=== PATIENT | male | born 1985 | race Caucasian/White ===

== ENCOUNTER 2016-12-24 11:07 | Emergency (ER) | payer SELFPAY ==
[~2016-12-24] VITALS: Ht 175.3 cm; Wt 71.4 kg
[2016-12-24 11:13] VITALS: BP 124/74; PULSE 83; TEMP 36.5; O2SAT 93; Ht 175.3 cm; Wt 71.4 kg
[2016-12-24] MEDS ORDERED: ELMCR EXT (12:02)
[2016-12-24] MEDS ORDERED: PRED50TA PO (12:02)
--- NOTE | 2016-12-25 13:04 | EMERGENCY ROOM VISIT NOTE ---
History First contact with patient: 11:46 Chief Complaint: SKIN PROBLEM Stated Complaint: ALLERGY History of Present Illness The patient is a 31 year old male who presents to the Emergency Room with complaints of pain and itching to his hands off and on for the past 6 months. The patient states the symptoms have worsened over the past 2-3 days. He does not have known exposure to disease or environmental contacts. He has not had fever or chills. He will have intermittent itching of his left leg but no other areas. No changes in soaps or detergents. Review of Systems More than 10 systems were reviewed and otherwise negative with the exception of history of present illness. Past Medical/Surgical History No chronic medical disease Family History No pertinent family history Social History Smoking Status: Never Smoker Current/Historical Medications Scheduled Permethrin 5% (Elimite 5%), 0 EXT UD Prednisone (Prednisone), 50 MG PO DAILY Allergies Coded Allergies: No Known Allergies (Unverified , 12/24/16) Physical Exam Vital Signs Date Time Temp Pulse Resp B/P Pulse Ox O2 Delivery O2 Flow Rate FiO2 12/24/16 11:13 36.5 83 16 124/74 93 Room Air Pain Rating (0-10): 0 Physical Exam VITALS: Vitals are noted on the nurse's note and reviewed by myself. Vital signs stable. GENERAL: Well-developed, well-nourished, male, who is in no acute distress and resting comfortably. Patient is cooperative with the examination. HEAD: Normocephalic atraumatic. HEART: Regular rate and rhythm without murmurs gallops or rubs. LUNGS: Clear to auscultation bilaterally without wheezes, rales or rhonchi. No retractions or accessory muscle use. SKIN: The skin was with several reddened areas primarily in the intertrigo regions of the hands and fingers. There are several small blisters along the medial left third and left fourth digits. No obvious burrows appreciated. No evidence of cellulitis or abscess. Medical Decision & Procedures ED Course Physical exam and history were performed. Nursing notes and EMR were reviewed. Patient appears to have itching of his hands with rash. His symptoms have been ongoing for several months but appear to be worsened today prompting his presentation. Clinically he does have irritation of the hands with some blistering noted on a few fingers. These do not look distinctly vesicular and I 'm unsure if they may be herpetic in nature. The patient may also have scabies as a possible etiology. I will give the patient Permethrin and a course of prednisone. He is to follow with his primary care physician if symptoms do not improve next week. He was otherwise invited back to the ER with any new, worsening, or concerning symptoms. The chart was completed utilizing [employer] Voice Recognition Software. Grammatical errors, random word insertions, pronoun errors, and incomplete sentences are an occasional consequence of this system due to software limitations, ambient noise, and hardware issues. Any formal questions or concerns about the content, text, or information contained within the body of this dictation should be directly addressed to the provider for clarification. . Medical Decision Differential diagnosis: Etiologies such as contact dermatitis, viral exanthem, urticaria, allergic reaction, Gold-Juan syndrome, toxic epidermal necrolysis, erythema multiforme, cellulitis, scabies, HSV, varicella, zoster, eczema, staph scalded skin syndrome, fungal infection, as well as others were entertained. Impression Primary Impression: Rash and nonspecific skin eruption Departure Information Dispostion Home / Self-Care Condition GOOD Prescriptions Prednisone (Prednisone) 50 Mg Tab 50 MG PO DAILY for 4 Days, #4 TAB Prov: Eusebio Barnard PA-C 12/24/16 Permethrin 5% (Elimite 5%) 180 Appln/60 Gm Cr 0 EXT UD, #1 TUBE APPLY HEAD TO FOOT - LEAVE ON 8-14 HR - WASH OFF Prov: Eusebio Barnard PA-C 12/24/16 Forms HOME CARE DOCUMENTATION FORM, IMPORTANT VISIT INFORMATION Patient Instructions [facility] Additional Instructions You were seen and evaluated today on an emergency basis only. This is not a substitute for, or an effort to provide, complete comprehensive medical care. It is not possible to recognize and treat all injuries or illnesses in a single emergency department visit. For this reason it is recommended that you followup with your primary care physician with any ongoing or persistent symptoms. Use Permethrin as prescribed. Take prednisone daily for the next 4 days. You are welcome to return to the emergency department anytime with new, worsening, or concerning symptoms.
== END 2016-12-24 12:15 | disposition home or self-care (01) ==
LOC: C.EDB 11:10 → C.EDD 12:15
DX: R21 Rash and other nonspecific skin eruption (principal)